=== PATIENT | female | born 1990 | race Hispanic/Latino ===

== ENCOUNTER 2024-08-06 12:35 | Emergency (ER) | payer BC, MEDICAID ==
[~2024-08-06] VITALS: Ht 160 cm; Wt 61.2 kg
[~2024-08-06 12:35] MED LIST: IBUP-2070 PO; IRON1TAB91 PO; PNV91TAB3 PO
[2024-08-06 13:12] LABS: BASOPHILS # (AUTO) 0.07 K/uL (0.00-0.20); BASOPHILS % (AUTO) 1.2 % (0.0-5.0); EOSINOPHILS # (AUTO) 0.16 K/uL (0.00-0.70); EOSINOPHILS % (AUTO) 2.6 % (0.0-8.0); HEMATOCRIT 39.8 % (36-48); IMMATURE GRANULOCYTE ABSOLUTE 0.01 K/uL (0-1); LYMPHOCYTES # (AUTO) 2.3 K/uL (1.0-4.8); MEAN CORPUSCULAR HEMOGLOBIN 25.6 pg (27.0-33.0); MEAN CORPUSCULAR HGB CONC 31.4 g/dL (32.0-36.0); MEAN CORPUSCULAR VOLUME 81.6 fL (79-99); MONOCYTES # (AUTO) 0.3 K/uL (0.1-1.0); MONOCYTES % (AUTO) 4.6 % (3.0-13.0); NEUTROPHILS # (AUTO) 3.3 K/uL (1.8-7.7); NEUTROPHILS % (AUTO) 53.4 % (40.0-77.0); PLATELET COUNT (AUTO) 414 K/uL (130-400); RED BLOOD CELL COUNT(AUTO) 4.88 MIL/uL (4.00-5.50); RED CELL DISTRIBUTION WIDTH 15.9 % (11.0-15.5); WHITE BLOOD COUNT (AUTO) 6.1 K/uL (4.8-10.8)
--- NOTE | 2024-08-06 13:14 | ERN ---
ED Note History of Present Illness Stated Complaint: HEADACHES,DIZZINESS, GLUCOSE LOW Chief Complaint: Headache Time Seen by MD: 12:47 Time Seen by Midlevel: 12:48 Dictation: 33-year-old female presents to the emergency department due to report of having a frontal headache that began approximately 5 days ago. She reports having some generalized weakness and fatigue associated with this. Patient states that at this time her headache is rated as a 5/10. Currently, she denies having any change in vision, nausea or vomiting associated with this. Upon initial evaluation, the patient presents with a normal neurologic examination. Allergies: Coded Allergies: No Known Allergies (Unverified Allergy, Unknown, 11/02/15) Emergency Care WAX BLENDER: None Home Meds Active Scripts Cephalexin (Cephalexin) 500 Mg Tablet, 1 TAB PO BID for 5 Days, #20 TAB 0 Refills Prov:TIMOTHY DE ANDA 08/06/24 Reported Medications Ibuprofen (Ibuprofen) 600 Mg Tablet, 600 MG PO Q6H PRN for PAIN, #30 TAB 11/05/15 Iron/FA/B12/C/Docusate Sodium (Ferraplus 90 Tablet) 1 Each Tablet, 1 EACH PO DAILY PRN for ANEMIA, #90 TAB 11/05/15 Pnv95/Ferrous Fumarate/FA ( Caplet) 1 Each Tablet, 1 EACH PO HS PRN for OTHER [SEE ORDER COMMENTS], TAB 11/02/15 Past Medical History Past Medical History: No Pertinent History, Anemia Surgical History: Other Surgical History Other: LRG LMP: July 28, 2024 : 4 Para: 2 Aborts: 1 RN Note Reviewed/Agreed w/PFSH: Yes Review of System Dictation Neuro: Headache, generalized weakness Initial Vital Sign VS Vital Signs Date Time Temp Pulse Resp B/P (MAP) Pulse Ox O2 Delivery O2 Flow Rate FiO2 08/06/24 12:39 97.3 81 16 133/91 98 Room Air* 0 21 Physical Exam Dictation General: awake, alert, NAD Head/Face: Normocephalic, atraumatic Eyes: PERRL, EOMI ENT: Oral mucosa moist Neck: Trachea midline, supple Cardiovascular: RRR, no edema Respiratory: Symmetrical, non-labored Abdomen: Soft, non-tender, non-distended, no guarding. Skin: Warm, dry, good turgor, no rash MS/Extremity: Pulses equal, no cyanosis, neurovascular intact, FROM Neuro: COAx4, GCS 15, steady gait, Psych: Normal behavior, mood, and affect normal Results (Laboratory/Radiology) Laboratory/Radiology Laboratory Tests Test 08/06/24 13:01 08/06/24 13:30 White Blood Count 6.1 K/uL (4.8-10.8) Red Blood Count 4.88 MIL/uL (4.00-5.50) Hemoglobin 12.5 g/dL (12.0-16.0) Hematocrit 39.8 % (36-48) Mean Corpuscular Volume 81.6 fL (79-99) Mean Corpuscular Hemoglobin 25.6 pg (27.0-33.0) L Mean Corpuscular Hemoglobin Concent 31.4 g/dL (32.0-36.0) L Red Cell Distribution Width 15.9 % (11.0-15.5) H Platelet Count 414 K/uL (130-400) H Mean Platelet Volume 8.7 fL (7.5-10.5) Immature Granulocyte % (Auto) 0.2 % (0-1) Neutrophils (%) (Auto) 53.4 % (40.0-77.0) Lymphocytes (%) (Auto) 38.0 % (21.0-51.0) Monocytes (%) (Auto) 4.6 % (3.0-13.0) Eosinophils (%) (Auto) 2.6 % (0.0-8.0) Basophils (%) (Auto) 1.2 % (0.0-5.0) Neutrophils # (Auto) 3.3 K/uL (1.8-7.7) Lymphocytes # (Auto) 2.3 K/uL (1.0-4.8) Monocytes # (Auto) 0.3 K/uL (0.1-1.0) Eosinophils # (Auto) 0.16 K/uL (0.00-0.70) Basophils # (Auto) 0.07 K/uL (0.00-0.20) Absolute Immature Granulocyte (auto 0.01 K/uL (0-1) Nucleated Red Blood Cells 0.0 % (0.0-0.19) Sodium Level 141 mmol/L (136-145) Potassium Level 3.8 mmol/L (3.5-5.1) Chloride Level 105 mmol/L (101-111) Carbon Dioxide Level 29 mmol/L (21-32) Blood Urea Nitrogen 8 mg/dL (7-18) Creatinine 0.7 mg/dL (0.5-1.0) Glomerular Filtration Rate Calc 117 mL/min (>90) Random Glucose 85 mg/dL (70-105) Total Calcium 9.0 mg/dL (8.5-10.1) Total Bilirubin 0.3 mg/dL (0.2-1.0) Aspartate Amino Transf (AST/SGOT) 24 U/L (10-37) Alanine Aminotransferase (ALT/SGPT) 37 U/L (12-78) Alkaline Phosphatase 100 U/L (50-136) Total Protein 8.1 g/dL (6.0-8.3) Albumin 3.9 g/dL (3.5-5.0) Urine Color LIGHT-YELLOW (YELLOW) Urine Appearance CLOUDY (CLEAR) H Urine pH 6.0 (5.0-8.0) Urine Specific Sigel 1.009 (1.001-1.031) Urine Protein NEGATIVE mg/dL (NEGATIVE) Urine Glucose (UA) NEGATIVE mg/dL (NEGATIVE) Urine Ketones NEGATIVE mg/dL (NEGATIVE) Urine Occult Blood NEGATIVE (NEGATIVE) Urine Nitrate NEGATIVE (NEGATIVE) Urine Bilirubin NEGATIVE mg/dL (NEGATIVE) Urine Urobilinogen 0.2 mg/dL (0.2-1.0) Urine Leukocyte Esterase 500 Lanny/uL (NEGATIVE) H Urine RBC 11-25 /HPF (0-1) H Urine WBC 11-25 /HPF (0-1) H Urine Squamous Epithelial Cells MANY /HPF (0-2) Urine Bacteria FEW /HPF (None Seen) Urine HCG, Qualitative NEGATIVE (NEGATIVE) Influenza Type A Antigen Negative For Type A Influenza Type B Antigen Negative For Type B SARS-CoV-2 Antigen (Rapid) PRESUMPTIVE NEGATIVE Labs Reviewed?: Yes ED Course ED Course Orders Procedure Category Date Status Time Cbc With Differential LAB 08/06/24 Complete 12:52 Comprehensive LAB 08/06/24 Complete Metabolic Panel 12:52 Urinalysis Profile LAB 08/06/24 Complete 12:52 ,Urine Test LAB 08/06/24 Complete 12:52 Influenza Type A & B, LAB 08/06/24 Complete Rapid 12:52 Covid19 (Sars Antigen LAB 08/06/24 Complete Rapid) 12:52 Culture Urine ANGELIKA 08/06/24 Logged 13:45 Vital Signs Date Time Temp Pulse Resp B/P (MAP) Pulse Ox O2 Delivery O2 Flow Rate FiO2 08/06/24 13:39 98.1 80 16 130/85 98 Room Air* 0 21 08/06/24 12:39 97.3 81 16 133/91 98 0 08/06/24 12:39 97.3 81 16 133/91 98 Room Air* 0 21 Medical Decision Making MDM MDM: Differential diagnosis: Acute headache, viral illness, frontal sinusitis. Rationale: Tests considered and ordered secondary to shared decision making include: Previous outside records reviewed: Old ER visits. Risk of complication and/or morbidity or mortality of patient management: None Medications-Per medication reconciliation Need for hospitalization: Patient does not meet criteria for hospitalization. Need for emergency major/minor surgery: No There are no social concerns with this patient. Prescription drug management Prescriptions will include symptomatic care Patient's prior external medical records from other ER visits were reviewed by me as indicated. Prior testing and results from previous visits were reviewed. Prior tests were taken into account with medical decision making and resource utilization, independent historian/historians were used to obtain complete medical history. I independently interpreted the test that were performed, results were reviewed by me and considered findings on radiology if ordered. Medical management and examination interpretation discussions were had by me with other qualified healthcare professionals as indicated for the patient's care. DX & DISP Disposition: Discharge Departure Impression: Primary Impression: Acute UTI Additional Impression: Acute frontal sinusitis Condition: Stable Scripts Cephalexin (Cephalexin) 500 Mg Tablet 1 TAB PO BID for 5 Days, #20 TAB 0 Refills Prov: TIMOTHY DE ANDA 08/06/24 Referrals: TIMOTHY NICK MD (PCP) TIMOTHY DE ANDA Aug 06, 2024 13:14
[2024-08-06 13:16] LABS: CREATININE 0.7 mg/dL (0.5-1.0); POTASSIUM 3.8 mmol/L (3.5-5.1)
[2024-08-06 13:20] LABS: ALBUMIN 3.9 g/dL (3.5-5.0); BILIRUBIN,TOTAL 0.3 mg/dL (0.2-1.0); TOTAL PROTEIN, SERUM 8.1 g/dL (6.0-8.3)
[2024-08-06 13:39] VITALS: BP 130/85; PULSE 80; RESP 16; TEMP 98.1; O2SAT 98
[2024-08-06 13:43] LABS: APPEARANCE,URINE CLOUDY (CLEAR); BILIRUBIN,URINE NEGATIVE (NEGATIVE); COLOR,URINE LIGHT-YELLOW (YELLOW); GLUCOSE, URINE (UA) NEGATIVE (NEGATIVE); KETONES,URINE NEGATIVE (NEGATIVE); LEUKOCYTE ESTERASE ,URINE 500 Leu/uL (NEGATIVE); NITRATE,URINE NEGATIVE (NEGATIVE); OCCULT BLOOD,URINE NEGATIVE (NEGATIVE); PROTEIN,URINE NEGATIVE (NEGATIVE); UROBILINOGEN,URINE 0.2 mg/dL (0.2-1.0)
[2024-08-06 13:45] LABS: ADD UA MICROSCOPIC YES
[2024-08-06 13:47] LABS: BACTERIA,URINE FEW /HPF (None Seen); MUCUS,URINE RARE LPF (None Seen); SQUAMOUS EPITHELIAL CELL,UR MANY /HPF (0-2)
[2024-08-06 13:50] LABS: HCG,QUALITATIVE URINE NEGATIVE (NEGATIVE)
[2024-08-06 14:02] LABS: INFLUENZA TYPE A Negative For Type A (NEGATIVE); INFLUENZA TYPE B Negative For Type B (NEGATIVE)
[2024-08-06 14:03] LABS: COVID19 (SARS ANTIGEN RAPID) PRESUMPTIVE NEGATIVE (NEGATIVE)
[2024-08-06] MEDS ORDERED: CEPH500T PO (14:20)
== END 2024-08-06 14:34 | disposition home or self-care (01) ==
LOC: EDH 12:35
DX: N39.0 Urinary tract infection, site not specified (principal); J01.10 Acute frontal sinusitis, unspecified; Z20.822 Contact with and (suspected) exposure to COVID-19
CPT/HCPCS: 36415; 80053; 81001; 81025; 85025; 87086; 87426; 87804; 99283